=== PATIENT | male | born 1955 | race Caucasian/White ===

== ENCOUNTER 2018-06-28 14:46 | Emergency (ER) | payer SELFPAY ==
[~2018-06-28] VITALS: Ht 170.2 cm; Wt 64.9 kg
[~2018-06-28 14:46] MED LIST: DOXY100C2 PO; MUPI22OI29 EXT; SULF-222 PO; TRAM50TA2 PO
[2018-06-28] MEDS ORDERED: ESCI10TA PO (14:52)
--- NOTE | 2018-06-28 14:52 | ED General ---
General Stated Complaint: ANXIETY Source of Information: Patient Exam Limitations: No Limitations History of Present Illness Date Seen by Provider: Jun 28, 2018 Time Seen by Provider: 14:50 Initial Comments To ER with reports of anxiety. Patient has brought his to the emergency room nearly 40 times this year. Discussed with him and he states that it's because he gets very worried about her. He states that he does worry a lot. He is agreeable to taking some medication if I would prescribe for him to help him relax. Timing/Duration: Other Severity: Moderate Allergies and Home Medications Allergies Coded Allergies: No Known Drug Allergies (Unverified , 03/14/14) Home Medications Doxycycline Hyclate 100 Mg Capsule, 1 EACH PO BID Prescribed by: WADE DAY on 04/22/142205 Mupirocin 22 Gm Oint, 22 GM EXT UD Prescribed by: WADE DAY on 04/22/142205 Tramadol Hcl 50 Mg Tablet, 50 MG PO Q4H PRN for PAIN Prescribed by: WADE DAY on 04/22/142205 Trimethoprim/Sulfamethoxazole 1 Ea Tablet, 1 EA PO BID Prescribed by: JUAN M IBRAHIM on 03/14/14 190 Patient Home Medication List Home Medication List Reviewed: Yes Review of Systems Review of Systems Constitutional: see HPI EENTM: see HPI Respiratory: no symptoms reported Cardiovascular: no symptoms reported Genitourinary: no symptoms reported Musculoskeletal: no symptoms reported Skin: no symptoms reported Psychiatric/Neurological: No Symptoms Reported Hematologic/Lymphatic: No Symptoms Reported Past Mqibzvb-Nummsc-Rukeza Hx Immunizations Up To Date Tetanus Booster (TDap): More than 5yrs Seasonal Allergies Seasonal Allergies: No Past Medical History Adverse Reaction/Blood Tranf: No Family Medical History Patient reports no known family medical history. Physical Exam Vital Signs Capillary Refill : Height, Weight, BMI Height: 5'7" Weight: 170lbs. oz. 77.067533uk; BMI Method: General Appearance: No Apparent Distress, WD/WN Eyes: Bilateral Eye Normal Inspection, Bilateral Eye PERRL, Bilateral Eye EOMI HEENT: PERRL/EOMI, TMs Normal Neck: Full Range of Motion, Normal Inspection Respiratory: No Accessory Muscle Use, No Respiratory Distress Cardiovascular: Regular Rate, Rhythm, Normal Peripheral Pulses Gastrointestinal: Normal Bowel Sounds, Non Tender, Soft Extremity: Normal Capillary Refill, Normal Inspection Neurologic/Psychiatric: Alert, Oriented x3, No Motor/Sensory Deficits Skin: Normal Color, Warm/Dry Progress/Results/Core Measures Suspected Sepsis SIRS Temperature: Pulse: Respiratory Rate: Blood Pressure / Mean: Results/Orders Vital Signs/I&O Capillary Refill : Departure Impression Primary Impression: Anxiety Disposition: 01 HOME, SELF-CARE Condition: Stable Departure-Patient Inst. Decision time for Depature: 14:51 Referrals: NO,LOCAL PHYSICIAN (PCP/Family) Primary Care Physician Patient Instructions: Anxiety, Adult (DC) Add. Discharge Instructions: 1. Start the medication once a day in the evening as directed. You may find that it takes about 2-3 weeks before you notice improvement in your anxiety. However, take this every day. Scripts Escitalopram Oxalate (Lexapro) 10 Mg Tablet 10 MG PO DAILY, #30 TAB 1 Refill Prov: JUAN M IBRAHIM APRN 06/28/18 JUAN M IBRAHIM APRN Jun 28, 2018 14:52
[2018-06-28 15:09] VITALS: BP 139/93
== END 2018-06-28 15:09 | disposition home or self-care (01) ==
LOC: EDUNIT# 14:46 → ER 14:47
DX: F41.9 Anxiety disorder, unspecified (principal)
CPT/HCPCS: 99283